=== PATIENT | female | born 1950 | race Caucasian/White ===

== ENCOUNTER 2023-05-31 01:38 | Emergency (ER) | payer MEDICARE, SELFPAY ==
--- NOTE | ~2023-05-31 | XR_ITS ---
EXAMINATION: XR CHEST CLINICAL INFORMATION: Dyspnea COMPARISON: None available. TECHNIQUE: Frontal view of the chest was obtained. FINDINGS: The lungs are clear with no focal consolidation. No evidence of pneumothorax, pulmonary edema, or pleural effusions. The cardiomediastinal silhouette is unremarkable. No acute osseous findings. XR/XR chest 1V IMPRESSION: No acute cardiopulmonary findings.
[2023-05-31 01:47] VITALS: BP 143/60; BP 150/80; PULSE 64; PULSE 78; RESP 20; TEMP 37.3; O2SAT 92; O2SAT 94; BMI 33.3
--- NOTE | 2023-05-31 02:16 | PC.NURSE ---
Pt A&Ox4, denies any pain, reports increase SOB x yesterday, Spo2 94% on RA, RR 16, lung sounds slightly wheezy, speaking in full sentences, Pt reports productive cough with clear to yellow sputum. Pt ambulated independently with steady gait to BR.
--- NOTE | 2023-05-31 02:22 | ECG_ITS ---
Test Reason : DYSPNEA Blood Pressure : / mmHG Vent. Rate : 076 BPM Atrial Rate : 076 BPM P-R Int : 170 ms QRS Dur : 082 ms QT Int : 406 ms P-R-T Axes : 061 009 049 degrees QTc Int : 456 ms Sinus rhythm with occasional Premature ventricular complexes Possible Left atrial enlargement Borderline ECG No previous ECGs available Referred By: Generic ED Physician Electronically Signed By:Sander Call
[2023-05-31 02:31] LABS: Delay - Chemistry DELAY
[2023-05-31 02:48] LABS: MANUAL DIFF FLAG NO
[2023-05-31 02:49] LABS: Basophils Absolute Auto 0.1 X10*3/uL (0.0-0.2); Basophils Percent Auto 0.7 % (0-2); Eosinophils Absolute Auto 0.5 X10*3/uL (0.0-0.4); Eosinophils Percent Auto 6.6 % (0-4); Hematocrit 41.4 % (37.0-47.0); Hemoglobin 13.6 g/dl (12.0-16.0); Imm Gran Abs Auto 0.02 X10*3/uL (0.00-0.03); Imm Gran Pct Auto 0.2 % (0.0-0.4); Lymphocytes Absolute Auto 1.2 X10*3/uL (1.2-4.9); Lymphocytes Percent Auto 14.3 % (20-40); Mean Corpuscular HGB Conc 32.9 g/dl (31.0-35.0); Mean Corpuscular Volume 94.3 fL (80.0-98.0); Mean Platelet Volume 9.5 fL (9.4-12.3); Monocytes Absolute Auto 0.4 X10*3/uL (0.1-1.2); Monocytes Percent Auto 5.4 % (2-11); Neutrophils Absolute Auto 5.8 x10*3/uL (2.0-8.3); Neutrophils Percent Auto 72.8 % (45-73); Platelet Count 173 X10*3/uL (160-400); Red Blood Count 4.39 X10*6/uL (4.20-5.50); Red Cell Distribution Width 12.8 % (11.0-16.0)
[2023-05-31 03:00] LABS: Anion Gap 15 (12-20); Blood Urea Nitrogen 16 mg/dL (9-16); Calcium 9.7 mg/dL (8.4-10.2); Carbon Dioxide 22 mmol/L (22-29); Chloride 108 mmol/L (96-108); Creatinine Clr Calc Pharmacy 86.2; Estimated Glomerular Filt Rate > 60; Glucose Random 140 mg/dL (60-115); Sodium 141 mmol/L (135-145)
[2023-05-31 04:18] LABS: Troponin-I High Sensitivity < 2.7 ng/L (<3.5-17.0)
--- NOTE | 2023-05-31 04:53 | ED.SOB ---
HPI - SOB/Dyspnea General Chief Complaint: Dyspnea Stated Complaint: asthma exacerbation/shortness of breath Time Seen by Provider: 05/31/23 04:51 Source: patient Mode of arrival: EMS Limitations: no limitations History of Present Illness HPI Narrative: INcreasing shortness of breath over the day and then gave herself nebs x 2 with no improvement. The amublance gave two treatments. patient did not receive steroids. This is the second time that she had shortness of breath in a few weeks. MD elicited complaint: shortness of breath Pertinent past history: asthma Onset (ago): hour(s) Timing: constant Severity: mild Known history of: asthma Related Data Previous Rx's Medication Instructions Recorded prednisone 20 mg tablet 60 mg PO DAILY #12 tabs 05/31/23 Allergies Allergy/AdvReac Type Severity Reaction Status Date / Time Iodinated Contrast Media Allergy Difficulty Verified 05/31/23 02:19 [Contrast Dye] Breathing codeine AdvReac Anxiety Verified 05/31/23 02:19 Review of Systems Review of Systems: Yes all other systems are reviewed and are negative Cardiovascular: Cardiovascular: Reports dyspnea Respiratory: Respiratory: Reports dyspnea Neurologic: Denies Sensory deficit (Neuro) [facility] Social History Social History Alcohol intake: current Alcohol intake frequency: holidays/special occasions only Smoked in Last 30 Days: No Use of substances other than those prescribed or required for medical reasons: No Advance Directives: No Advance Directives Information Provided: Yes Physical Exam Vital Signs: Vital Signs: Last Vital Signs Temp 98.3 F 05/31/23 06:00 Pulse 65 05/31/23 06:00 Resp 20 05/31/23 06:00 BP 134/47 L 05/31/23 06:00 Pulse Ox 95 05/31/23 06:00 O2 Del Method Room Air 05/31/23 06:00 BMI result Body Mass Index 33.3 Const: Other: slightly short of breath Nutritional Appearance: average body habitus Orientation/consciousness: oriented to person and patient oriented x3 Limitations: no limitations HEENT: Head: Yes normal to inspection Ears: external ears normal General nose exam: Normal external nose present Mouth: Normal oral and palatal mucosa present and oropharynx normal Throat: Yes posterior oropharynx normal Eyes: General: appearance normal, both eyes and all related structures Neck: Other: supple Neck: Yes normal visual inspection Chest: Chest palpation & inspection: normal inspection of the chest Resp: Other: diffuse wheezing bilaterally Cardio: Jugular venous distension: no JVD Rate: regular rate Rhythm: regular rhythm Heart sounds: S1 normal heart sound present and S2 normal heart sound present GI: Inspection: Yes normal to inspection Palpation (GI): Soft to palpation, nontender and No hepatosplenomegaly present Auscultation: normal bowel sounds : General: Yes no CVA tenderness Back/Spine/Pelvis: Back: no CVA tenderness Skin: General skin exam: no rashes or lesions noted Neuro: General: oriented to person and patient oriented x3 Cranial nerves: Yes CN's II-XII intact bilaterally Motor exam (neuro): 5/5 motor strength present throughout Sensory Exam: No Sensory deficit (Neuro) Extrem: General: Yes normal to inspection Psych: Appearance: grossly normal Course Reevaluation(s) Reevaluation #1: no more wheezing ambulating well will dc home on prednisone Time: 06:31 Medications Administered Discontinued Medications Generic Name Dose Route Start Last Admin Trade Name Freq PRN Reason Stop Dose Admin Albuterol Sulfate 2.5 mg/ 5 mg 05/31/23 05:00 05/31/23 05:18 Albuterol Sulfate 2.5 mg INHALE 05/31/23 05:01 5 mg ONCE ONE Administration Methylprednisolone Sodium Succinate 125 mg 05/31/23 05:01 05/31/23 05:25 Methylprednisolone Sod Succ 125 Mg/2 Ml Vial IVPUSH 05/31/23 05:02 125 mg ONCE ONE Administration Medical Decision Making Differential Diagnosis Differential Diagnoses: The differential diagnosis associated with the presentation includes (chronic obstructive pulmonary disease, sarcoidosis, pneumonia were all considered) Admission/Observation Consideration of admission/observation: Escalation of care including admission/observation considered (upon arrival this 72 yo female with shortness of breath and wheezing was considered for admission) Lab Data MDM Lab Attestation statement: I reviewed the patient's lab results. (normal WBC, chemistries normal) 05/31/23 02:43 05/31/23 02:43 Labs: Lab Results 05/31/23 05/31/23 05/31/23 Range/Units 02:30 02:43 02:43 WBC 8.0 (4.8-10.8) X10*3/uL RBC 4.39 (4.20-5.50) X10*6/uL Hgb 13.6 (12.0-16.0) g/dl Hct 41.4 (37.0-47.0) % MCV 94.3 (80.0-98.0) fL MCH 31.0 (27.0-33.0) pg MCHC 32.9 (31.0-35.0) g/dl RDW 12.8 (11.0-16.0) % Plt Count 173 (160-400) X10*3/uL MPV 9.5 (9.4-12.3) fL Immature Gran % (Auto) 0.2 (0.0-0.4) % Neut % (Auto) 72.8 (45-73) % Lymph % (Auto) 14.3 L (20-40) % [place] % (Auto) 5.4 (2-11) % Eos % (Auto) 6.6 H (0-4) % Baso % (Auto) 0.7 (0-2) % Lymph # (Auto) 1.2 (1.2-4.9) X10*3/uL [place] # (Auto) 0.4 (0.1-1.2) X10*3/uL Eos # (Auto) 0.5 H (0.0-0.4) X10*3/uL Baso # (Auto) 0.1 (0.0-0.2) X10*3/uL Abs Immat Gran (auto) 0.02 (0.00-0.03) X10*3/uL Absolute Neuts (auto) 5.8 (2.0-8.3) x10*3/uL Absolute Nucleated RBC 0.000 (0.0-0.012) X10*3/uL Nucleated RBC % (auto) 0.0 (0.0-0.2) /100WBC Sodium 141 (135-145) mmol/L Potassium 4.0 (3.3-5.1) mmol/L Chloride 108 (96-108) mmol/L Carbon Dioxide 22 (22-29) mmol/L Anion Gap 15 (12-20) BUN 16 (9-16) mg/dL Creatinine 0.69 (0.5-1.4) mg/dL Estim Creat Clear Calc 86.2 Estimated GFR > 60 Random Glucose 140 H (60-115) mg/dL Calcium 9.7 (8.4-10.2) mg/dL Troponin I High Sens (<3.5-17.0) ng/L Specimen Comment DELAY 05/31/23 Range/Units 02:43 WBC (4.8-10.8) X10*3/uL RBC (4.20-5.50) X10*6/uL Hgb (12.0-16.0) g/dl Hct (37.0-47.0) % MCV (80.0-98.0) fL MCH (27.0-33.0) pg MCHC (31.0-35.0) g/dl RDW (11.0-16.0) % Plt Count (160-400) X10*3/uL MPV (9.4-12.3) fL Immature Gran % (Auto) (0.0-0.4) % Neut % (Auto) (45-73) % Lymph % (Auto) (20-40) % [place] % (Auto) (2-11) % Eos % (Auto) (0-4) % Baso % (Auto) (0-2) % Lymph # (Auto) (1.2-4.9) X10*3/uL [place] # (Auto) (0.1-1.2) X10*3/uL Eos # (Auto) (0.0-0.4) X10*3/uL Baso # (Auto) (0.0-0.2) X10*3/uL Abs Immat Gran (auto) (0.00-0.03) X10*3/uL Absolute Neuts (auto) (2.0-8.3) x10*3/uL Absolute Nucleated RBC (0.0-0.012) X10*3/uL Nucleated RBC % (auto) (0.0-0.2) /100WBC Sodium (135-145) mmol/L Potassium (3.3-5.1) mmol/L Chloride (96-108) mmol/L Carbon Dioxide (22-29) mmol/L Anion Gap (12-20) BUN (9-16) mg/dL Creatinine (0.5-1.4) mg/dL Estim Creat Clear Calc Estimated GFR Random Glucose (60-115) mg/dL Calcium (8.4-10.2) mg/dL Troponin I High Sens < 2.7 (<3.5-17.0) ng/L Specimen Comment Independent Interpretation I performed an independent interpretation of an: EKG (sinus 80, pvcs, no st or twave changes) and Plain X-Ray (CXR: no infiltrate) Independent Historian Clinical information obtained from an independent historian. History obtained from or confirmed by: Other (daughter) External Record Review External record reviewed: Outpatient record Prescription Management I considered prescription management with: Antibiotic (antibiotics considered but no evidence of infection, no fever, normal WBC) Chronic Conditions Patient?s care impacted by: Other (COPD, sarcoidosis) Discharge Plan Discharge Clinical Impression: Acute exacerbation of chronic obstructive airways disease Patient Disposition: Home, Self-Care Instructions: COPD (Chronic Obstructive Pulmonary Disease) (ED) Prescriptions: New prednisone 20 mg tablet 60 mg PO DAILY Qty: 12 0RF Referrals: Physician,Unknown J [Primary Care Provider] - 5 days
[2023-05-31 05:18] VITALS: PULSE 64; RESP 18; O2SAT 94
[2023-05-31] MEDS: Albuterol Sulfate 2.5 MG, Albuterol Sulfate (0.083%) 2.5 MG 5 MG INHALE (05:18)
[2023-05-31] MEDS: methylPREDNISolone Sod Succ 125 MG/2 ML VIAL IVPUSH (05:25)
[2023-05-31 06:00] VITALS: BP 134/47; PULSE 65; RESP 20; TEMP 36.8; O2SAT 95
== END 2023-05-31 07:14 | disposition home or self-care (01) ==
PROVIDERS: Emergency Provider Emergency Medicine
DX: J44.1 Chronic obstructive pulmonary disease with (acute) exacerbation (principal); R06.02 Shortness of breath; R94.31 Abnormal electrocardiogram [ECG] [EKG]; J45.909 Unspecified asthma, uncomplicated; Z79.899 Other long term (current) drug therapy
CPT/HCPCS: 36415; 71045; 80048; 84484; 85025; 93005; 94640; 96374; 99284; 99285; J2930

== ENCOUNTER → 2023-05-31 02:22 | Outpatient (BNV) | payer MEDICARE, SELFPAY | PROVIDERS: Emergency Provider Emergency Medicine; Visit Provider Internal Medicine Cardiovascular Disease | DX: I49.3 Ventricular premature depolarization (principal) | CPT/HCPCS: 93010 ==

== ENCOUNTER 2023-08-09 09:42 | Outpatient (REF) | payer MEDICARE, SELFPAY ==
[2023-08-09 10:43] LABS: MANUAL DIFF FLAG NO
[2023-08-09 11:44] LABS: Basophils Absolute Auto 0.1 X10*3/uL (0.0-0.2); Eosinophils Absolute Auto 0.3 X10*3/uL (0.0-0.4); Eosinophils Percent Auto 5.5 % (0-4); Hematocrit 44.5 % (37.0-47.0); Hemoglobin 14.2 g/dl (12.0-16.0); Imm Gran Abs Auto 0.02 X10*3/uL (0.00-0.03); Imm Gran Pct Auto 0.4 % (0.0-0.4); Lymphocytes Absolute Auto 1.4 X10*3/uL (1.2-4.9); Lymphocytes Percent Auto 29.1 % (20-40); Mean Corpuscular HGB Conc 31.9 g/dl (31.0-35.0); Mean Corpuscular Hemoglobin 31.3 pg (27.0-33.0); Mean Corpuscular Volume 98.2 fL (80.0-98.0); Monocytes Absolute Auto 0.4 X10*3/uL (0.1-1.2); Monocytes Percent Auto 7.3 % (2-11); Neutrophils Absolute Auto 2.7 x10*3/uL (2.0-8.3); Neutrophils Percent Auto 56.7 % (45-73); Platelet Count 205 X10*3/uL (160-400); Red Blood Count 4.53 X10*6/uL (4.20-5.50); Red Cell Distribution Width 13.2 % (11.0-16.0); White Blood Count 4.8 X10*3/uL (4.8-10.8)
[2023-08-09 13:03] LABS: Alanine Aminotransferase 13 U/L (0-31); Albumin Level 4.3 g/dL (3.5-5.0); Alkaline Phosphatase 67 U/L (39-117); Anion Gap 16 (12-20); Aspartate Amino Transferase 15 U/L (5-31); Bilirubin Direct 0.2 mg/dL (0.0-0.5); Bilirubin Total 0.7 mg/dL (0.0-1.0); Blood Urea Nitrogen 12 mg/dL (9-16); Calcium 9.5 mg/dL (8.4-10.2); Carbon Dioxide 26 mmol/L (22-29); Chloride 104 mmol/L (96-108); Estimated Glomerular Filt Rate > 60; Glucose Random 97 mg/dL (60-115); Potassium 3.9 mmol/L (3.3-5.1); Sodium 142 mmol/L (135-145)
[2023-08-16 13:28] LABS: Angiotensin Converting Enzyme 28 U/L (9-67)
== END 2023-08-09 09:43 | disposition home or self-care (01) ==
LOC: HO.LAB 09:42
PROVIDERS: PCP Nurse Practitioner Primary Care; Visit Provider Internal Medicine Pulmonary Disease
DX: D86.9 Sarcoidosis, unspecified (principal); J45.909 Unspecified asthma, uncomplicated
CPT/HCPCS: 36415; 80048; 80076; 82164; 85025

== ENCOUNTER 2023-08-09 09:42 | Outpatient (AMB) | payer MEDICARE, SELFPAY ==
--- NOTE | 2023-08-09 09:50 | MHC.OFFVIS ---
Intake Vital Signs 08/09/23 09:56 Height 5 ft 6 in BP 110/62 Blood Pressure Location Rt brachial Position Sitting Pulse 59 Pulse Source Doppler Pulse Oximetry (%) 95 Oxygen Delivery Method Room Air Intake Visit Reasons: Asthma Allergies Iodinated Contrast Media [Contrast Dye] Allergy (Verified 05/31/23 02:19) Difficulty Breathing codeine Adverse Reaction (Verified 05/31/23 02:19) Anxiety HPI Asthma HPI Details 72-year-old lady with underlying diagnosis of sarcoidosis in 1996 with bronchoscopic biopsy performed in [facility]) treated with inhaled corticosteroids still 2001, after to sound 2 on now therapy, referred for evaluation of her pulmonary concerns after patient had several asthma symptoms related ER visit over the summer of 2022 that she attributes to high humidity. Currently she has essentially asymptomatic on Symbicort 160 and albuterol MDI. Though, she does complain of significant raspiness of her with while using Symbicort. Patient does not know her family medical history as she was adopted. 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 Patient has recent pulmonary function test performed at [facility], not available for current visit. [facility] Social History Alcohol intake: current Alcohol intake frequency: holidays/special occasions only Review of Systems Const Denies daytime sleepiness, Denies excessive sweating, Denies fatigue, Denies fever(s), Denies lethargy, Denies malaise, Denies night sweats, Denies snoring and Denies weight loss Eyes Denies blurry vision and Denies itchy eyes ENT Denies nasal congestion, Denies post nasal drip, Denies sinus pain, Denies sinus pressure and Denies other ( Thrush) Card Denies chest pain, Denies pedal edema, Denies dyspnea, Denies orthopnea and Denies paroxysmal nocturnal dyspnea Resp Denies cough, Denies hemoptysis, Denies excessive phlegm production, Denies dyspnea, Denies snoring and Denies wheezing GI Denies abdominal pain and Denies heartburn Musc Denies myalgias, Denies arthralgias and Denies joint swelling Skin/Breast Denies rash Neuro Denies memory loss and Denies seizure-like activity Psych Denies abnormal sleep pattern, Denies anxiety and Denies memory loss Endo Denies excessive sweating, Denies fatigue and Denies heat intolerance Homero/Lymph Denies easy bruising Aller/Immun Denies itchy eyes, Denies seasonal rhinorrhea and Denies wheezing Physical Exam Vital Signs: Last Vital Signs Pulse 59 08/09/23 09:56 BP 110/62 08/09/23 09:56 Pulse Ox 95 08/09/23 09:56 Oxygen Delivery Method Room Air 08/09/23 09:56 Const General: no acute distress and alert Nutritional Appearance: not obese Orientation/consciousness: Other orientation findings ( oriented) HEENT Head: Yes atraumatic Eyes General: appearance normal, both eyes and all related structures Sclerae: sclerae normal EOM: EOMs intact bilaterally Neck Neck: Yes supple Lymphatic: no lymphadenopathy noted Resp Effort & Inspection: normal respiratory effort and no use of accessory muscles Auscultation: clear to auscultation bilaterally Cardio Rate: regular rate Rhythm: regular rhythm Heart sounds: no gallops, no murmurs and no rubs Skin General skin exam: other ( warm) Extrem General: No clubbing, No cyanosis and No edema Assessment & Plan Assessment & Plan (1) Sarcoidosis: Code(s): D86.9 - Sarcoidosis, unspecified Plan: On biopsy from bronchoscopic specimen in 1996, recently in remission, until summer. Will obtain CT chest and laboratory studies for further evaluation. Now controlled on Symbicort. (2) Asthma: Code(s): J45.909 - Unspecified asthma, uncomplicated Plan: Symptoms controlled Symbicort, has significant raspiness of her voice, will switch to Breo. Will request PFT results from [facility]. Orders: Orders CT chest wo IV con Today D86.9 - Sarcoidosis, unspecified Liver Panel Today D86.9 - Sarcoidosis, unspecified Complete Blood Count Auto Diff Today D86.9 - Sarcoidosis, unspecified Basic Metabolic Panel Today D86.9 - Sarcoidosis, unspecified Angiotensin Converting Enzyme Today D86.9 - Sarcoidosis, unspecified Medications: New Breo Ellipta 100-25 mcg/dose (fluticasone furoate-vilanterol) 1 inh inhalation DAILY 30 days 60 ea 6RF NS D86.9 - Sarcoidosis, unspecified Coding Level of Care Code New Pt Level 4 (65833) Diagnoses Sarcoidosis D86.9 Asthma J45.909
[2023-08-09 09:56] VITALS: BP 110/62; PULSE 59; O2SAT 95
== END 2023-08-09 10:33 | disposition home or self-care (01) ==
PROVIDERS: Visit Provider Internal Medicine Pulmonary Disease
DX: D86.9 Sarcoidosis, unspecified (principal); J45.909 Unspecified asthma, uncomplicated
CPT/HCPCS: 99204

== ENCOUNTER 2023-08-31 14:17 | Outpatient (REF) | payer MEDICARE, SELFPAY ==
--- NOTE | ~2023-08-31 | CT_ITS ---
EXAMINATION: CT CHEST WITHOUT CONTRAST CLINICAL INFORMATION: Sarcoidosis. COMPARISON: Chest x-ray 05/31/2023. TECHNIQUE: Multidetector volumetric CT imaging of the chest was done. Axial MIP volume rendering provided. Sagittal and coronal reformatted images were obtained. This CT examination was performed using dose optimization techniques as appropriate, variously including the following: *Automated exposure control *Adjustment of mA and/or kV according to patient size (this includes techniques or standardized protocols for targeted exams where dose is matched to indication/reason for exam; i.e. extremities or head) *Use of iterative reconstruction technique DLP: 179 mGy-cm FINDINGS: LUNGS: Minor subpleural reticulation in the lateral aspect of the right lower lobe. Scattered pulmonary micronodules for which no follow-up is recommended as per Fleischner Society guidelines. No dominant nodule or nodule with suspicious morphology. No consolidation MEDIASTINUM: No adenopathy. No pericardial effusion. Pectus excavatum distorts the anterior mediastinum. No aortic aneurysm. CORONARY ARTERY CALCIFICATION: None visualized on this study. PLEURA: There is no pleural effusion. No pleural mass or thickening. AXILLA: No adenopathy. UPPER ABDOMEN: No adrenal mass. The spleen is not enlarged. No upper abdominal adenopathy. OSSEOUS STRUCTURES: Pectus excavatum. Mild endplate degenerative changes in the thoracic spine. CT/CT chest wo IV con IMPRESSION: Mild asymmetric subpleural reticulation in the lateral aspect of the right lower lobe. This is nonspecific but not strongly suspicious of interstitial lung disease related to sarcoid. No adenopathy. Normal size spleen. Fleischner guidelines were followed.
== END 2023-08-31 14:18 | disposition home or self-care (01) ==
LOC: HO.CT 14:17
PROVIDERS: PCP Nurse Practitioner Primary Care; Visit Provider Internal Medicine Pulmonary Disease
DX: D86.9 Sarcoidosis, unspecified (principal)
CPT/HCPCS: 71250

== ENCOUNTER 2023-09-06 10:07 | Outpatient (AMB) | payer MEDICARE, SELFPAY ==
--- NOTE | 2023-09-06 10:09 | A.OFFVIS_ITS ---
Intake Vital Signs 09/06/23 10:15 Height 5 ft 6 in BP 109/62 Blood Pressure Location Rt brachial Position Sitting Pulse 65 Pulse Source Doppler Pulse Oximetry (%) 97 Oxygen Delivery Method Room Air Intake Visit Reasons: Asthma Allergies Iodinated Contrast Media [Contrast Dye] Allergy (Verified 09/06/23 10:19) Difficulty Breathing codeine Adverse Reaction (Verified 09/06/23 10:19) Anxiety HPI Asthma HPI Details 72-year-old lady with underlying diagnos is of sarcoidosis in 1996 with bronchoscopic biopsy performed in [facility]) treated with inhaled corticosteroids still 2001, after to sound 2 on now therapy, referred for evaluation of her pulmonary concerns after patient had several asthma symptoms related ER visit over the summer of 2022 that she attributes to high humidity. Currently she has essentially asymptomatic on Symbicort 160 and albuterol MDI. Though, she does complain of significant raspiness of her with while using Symbicort. Patient does not know her family medical history as she was adopted. 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 After the last office visit pulmonary function test from [facility] with reviewed. Patient does have underlying mild COPD with bronchodilator response. She completed her CT chest with radiologist reading still pending, but on my review no acute pulmonary process noted. She has tried switching from Symbicort to Breo with worsening control of her symptoms, but improvement in side effects. Her renal function, transaminases, and RAMBO level are normal. Her CBC shows elevated eosinophils. [facility] Social History Alcohol intake: current Alcohol intake frequency: holidays/special occasions only Review of Systems Const Denies daytime sleepiness, Denies excessive sweating, Denies fatigue, Denies fever(s), Denies lethargy, Denies malaise, Denies night sweats, Denies snoring and Denies weight loss Eyes Denies blurry vision and Denies itchy eyes ENT Denies nasal congestion, Denies post nasal drip, Denies sinus pain, Denies sinus pressure and Denies other ( Thrush) Card Denies chest pain, Denies pedal edema, Denies dyspnea, Denies orthopnea and De nies paroxysmal nocturnal dyspnea Resp Denies cough, Denies hemoptysis, Denies excessive phlegm production, Denies dyspnea, Denies snoring and Denies wheezing GI Denies abdominal pain and Denies heartburn Musc Denies myalgias, Denies arthralgias and Denies joint swelling Skin/Breast Denies rash Neuro Denies memory loss and Denies seizure-like activity Psych Denies abnormal sleep pattern, Denies anxiety and Denies memory loss Endo Denies excessive sweating, Denies fatigue and Denies heat intolerance Homero/Lymph Denies easy bruising Aller/Immun Denies itchy eyes, Denies seasonal rhinorrhea and Denies wheezing Physical Exam Vital Signs: Last Vital Signs Pulse 65 09/06/23 10:15 BP 109/62 09/06/23 10:15 Pulse Ox 97 09/06/23 10:15 Oxygen Delivery Method Room Air 09/06/23 10:15 Const General: no acute distress and alert Nutritional Appearance: not obese Orientation/consciousness: Other orientation findings ( oriented) HEENT Head: Yes atraumatic Eyes General: appearance normal, both eyes and all related structures Sclerae: sclerae normal EOM: EOMs intact bilaterally Neck Neck: Yes supple Lymphatic: no lymphadenopathy noted Resp Effort & Inspection: normal respiratory effort and no use of accessory muscles Auscultation: clear to auscultation bilaterally Cardio Rate: regular rate Rhythm: regular rhythm Heart sounds: no gallops, no murmurs and no rubs Skin General skin exam: other ( warm) Extrem General: No clubbing, No cyanosis and No edema Assessment & Plan Assessment & Plan (1) Sarcoidosis: Code(s): D86.9 - Sarcoidosis, unspecified (2) Asthma: Code(s): J45.909 - Unspecified asthma, uncomplicated Plan Worsening control on Breo, patient wants to try Symbicort back. May consider switching to Trelegy or BrezTri. Will obtain RAST for evaluation of allergic component. Orders: Orders Rast Allergen Today J45.909 - Unspecified asthma, uncomplicated Coding Level of Care Code Est Pt Level 4 (10944) Diagnoses Sarcoidosis D86.9 Asthma J45.909
[2023-09-06 10:15] VITALS: BP 109/62; PULSE 65; O2SAT 97
== END 2023-09-06 10:46 | disposition home or self-care (01) ==
PROVIDERS: PCP Nurse Practitioner Primary Care; Visit Provider Internal Medicine Pulmonary Disease
DX: D86.9 Sarcoidosis, unspecified (principal); J45.909 Unspecified asthma, uncomplicated
CPT/HCPCS: 99214

== ENCOUNTER 2023-09-06 10:07 | Outpatient (REF) | payer MEDICARE, SELFPAY | END 2023-09-06 10:08 | disposition home or self-care (01) | LOC: HO.LAB 10:07 | PROVIDERS: PCP Nurse Practitioner Primary Care; Visit Provider Internal Medicine Pulmonary Disease | DX: J45.909 Unspecified asthma, uncomplicated (principal); D86.9 Sarcoidosis, unspecified | CPT/HCPCS: 36415; 82785; 86003; 99212 ==

== ENCOUNTER 2023-10-25 10:39 | Outpatient (AMB) | payer MEDICARE, SELFPAY ==
[2023-10-25 10:40] VITALS: BP 110/57; PULSE 67; O2SAT 98
--- NOTE | 2023-10-25 10:40 | MHC.OFFVIS ---
Intake Vital Signs 10/25/23 10:40 Height 5 ft 6 in BP 110/57 L Blood Pressure Location Rt brachial Position Sitting Pulse 67 Pulse Source Doppler Pulse Oximetry (%) 98 Oxygen Delivery Method Room Air Intake Visit Reasons: Asthma Allergies Iodinated Contrast Media [Contrast Dye] Allergy (Verified 10/25/23 10:42) Difficulty Breathing codeine Adverse Reaction (Verified 10/25/23 10:42) Anxiety HPI Asthma HPI Details 73-year-old lady with underlying diagnosis of sarcoidosis with symptoms reasonably well controlled on Symbicort 160 and albuterol MDI. After the last office visit patient has completed her RAST that was essentially normal. His CT chest shows some signs of sarcoidosis. She does complain of cough productive of thick sputum. [facility] Social History Alcohol intake: current Alcohol intake frequency: holidays/special occasions only Review of Systems Const Denies daytime sleepiness, Denies excessive sweating, Denies fatigue, Denies fever(s), Denies lethargy, Denies malaise, Denies night sweats, Denies snoring and Denies weight loss Eyes Denies blurry vision and Denies itchy eyes ENT Denies nasal congestion, Denies post nasal drip, Denies sinus pain, Denies sinus pressure and Denies other ( Thrush) Card Denies chest pain, Denies pedal edema, Denies dyspnea, Denies orthopnea and Denies paroxysmal nocturnal dyspnea Resp Reports cough, Denies hemoptysis, Reports excessive phlegm production, Denies dyspnea, Denies snoring and Denies wheezing GI Denies abdominal pain and Denies heartburn Musc Denies myalgias, Denies arthralgias and Denies joint swelling Skin/Breast Denies rash Neuro Denies memory loss and Denies seizure-like activity Psych Denies abnormal sleep pattern, Denies anxiety and Denies memory loss Endo Denies excessive sweating, Denies fatigue and Denies heat intolerance Homero/Lymph Denies easy bruising Aller/Immun Denies itchy eyes, Denies seasonal rhinorrhea and Denies wheezing Physical Exam Vital Signs: Last Vital Signs Pulse 67 10/25/23 10:40 BP 110/57 L 10/25/23 10:40 Pulse Ox 98 10/25/23 10:40 Oxygen Delivery Method Room Air 10/25/23 10:40 Const General: no acute distress and alert Nutritional Appearance: not obese Orientation/consciousness: Other orientation findings ( oriented) HEENT Head: Yes atraumatic Eyes General: appearance normal, both eyes and all related structures Sclerae: sclerae normal EOM: EOMs intact bilaterally Neck Neck: Yes supple Lymphatic: no lymphadenopathy noted Resp Effort & Inspection: normal respiratory effort and no use of accessory muscles Auscultation: clear to auscultation bilaterally Cardio Rate: regular rate Rhythm: regular rhythm Heart sounds: no gallops, no murmurs and no rubs Skin General skin exam: other ( warm) Extrem General: No clubbing, No cyanosis and No edema Assessment & Plan Assessment & Plan (1) Sarcoidosis: Code(s): D86.9 - Sarcoidosis, unspecified (2) Asthma: Code(s): J45.909 - Unspecified asthma, uncomplicated Plan Results of CT chest reviewed, peripheral reticulation compatible with sarcoidosis, no fibrosis or significant lymphadenopathy. Symptoms reasonably well controlled on Symbicort and albuterol MDI. Continue current regimen. Now with bronchitic exacerbation, will treat with a course of azithromycin. Results of RAST reviewed, underlying eosinophilia. will monitor clinically at this time, if symptoms start to worsen, will consider Fasenra. Medications: New azithromycin For 250 mg dose pack: take 500 mg today (day 1), then 250 mg for 4 days (days 2-5) PO 6 tabs 0RF Symbicort 160-4.5 mcg/actuation (budesonide-formoterol) 2 puffs inhalation BID 90 days 3 ea 4RF NS Discontinued Breo Ellipta 100-25 mcg/dose (fluticasone furoate-vilanterol) Discontinued Reason: Doctor's Order 1 inh inhalation DAILY 30 days 60 ea 6RF NS D86.9 - Sarcoidosis, unspecified Coding Level of Care Code Est Pt Level 4 (81517) Diagnoses Sarcoidosis D86.9 Asthma J45.909
== END 2023-10-25 11:12 | disposition home or self-care (01) ==
PROVIDERS: PCP Nurse Practitioner Primary Care; Visit Provider Internal Medicine Pulmonary Disease
DX: D86.9 Sarcoidosis, unspecified (principal); J45.909 Unspecified asthma, uncomplicated
CPT/HCPCS: 99214

== ENCOUNTER → 2023-10-25 10:39 | Outpatient (BNVA) | payer MEDICARE, SELFPAY | PROVIDERS: PCP Nurse Practitioner Primary Care; Visit Provider Internal Medicine Pulmonary Disease | DX: D86.9 Sarcoidosis, unspecified (principal); J45.909 Unspecified asthma, uncomplicated | CPT/HCPCS: 99212 ==

== ENCOUNTER 2023-11-06 15:57 | Emergency (ER) | payer MEDICARE, SELFPAY ==
--- NOTE | ~2023-11-06 | XR_ITS ---
EXAMINATION: XR RIBS, LEFT CLINICAL INFORMATION: Fall, pain. COMPARISON: None available. TECHNIQUE: 3 views of the left ribs were obtained. Chest one view. FINDINGS: Lungs are clear. No consolidation, pneumothorax, or pleural effusion. The cardiomediastinal silhouette and pulmonary vasculature are normal. Osseous structures are unremarkable. Multiple views of left ribs reveal no visible fracture or bony abnormality. No fractures are identified. XR/XR ribs LT min 3V w CXR1V IMPRESSION: Unremarkable chest and left Ribs series exam.
--- NOTE | 2023-11-06 16:08 | ED.FALL ---
HPI - Fall General Chief Complaint: Fall Stated Complaint: fell11/06 left side rib pain Time Seen by Provider: 11/06/23 17:56 Source: patient Mode of arrival: ambulatory Limitations: no limitations History of Present Illness HPI Narrative: Patient is a 73-year-old female presents emergency department for evaluation of traumatic left rib pain. Reports approximately 1.5 hours prior to arrival she was walking and she sustained a mechanical fall who believes she may have tripped over a stick, resulting in a fall landing lateral chest wall. Pain is made worse inspiration. Denies any head strike or loss of consciousness. Reports a prior rib fx from a fall on this side a few years back. Related Data Home Medications Medication Instructions Recorded Confirmed albuterol sulfate 2.5 mg/3 mL mg inhalation 08/09/23 (0.083 %) solution for nebulization albuterol sulfate 90 mcg/actuation inhalation 08/09/23 aerosol inhaler apixaban 5 mg tablet (Eliquis) 5 mg PO BID 08/09/23 flecainide 100 mg tablet 50 mg PO BID 08/09/23 propranolol 20 mg tablet 20 mg PO BID 08/09/23 Previous Rx's Medication Instructions Recorded Symbicort 160 mcg-4.5 2 puff inhalation BID 90 days #3 ea 10/25/23 mcg/actuation HFA aerosol inhaler (budesonide-formoterol) azithromycin 250 mg tablet See Rx Instructions PO .COMPLEX #6 10/25/23 tabs Allergies Allergy/AdvReac Type Severity Reaction Status Date / Time Iodinated Contrast Media Allergy Difficulty Verified 10/25/23 10:42 [Contrast Dye] Breathing codeine AdvReac Anxiety Verified 10/25/23 10:42 Review of Systems Review of Systems: Yes all other systems are reviewed and are negative [facility] Past Medical History Attestation statement: The following information was validated with the patient. Source: old records reviewed Social History Social History Alcohol intake: current Alcohol intake frequency: holidays/special occasions only Advance Directives: Yes Advance Directives Information Provided: No Advance Directives on File: No Physical Exam Vital Signs: Vital Signs: Last Vital Signs Temp 97.5 F 11/06/23 16:11 Pulse 70 11/06/23 16:11 Resp 18 11/06/23 16:11 BP 133/63 11/06/23 16:11 Pulse Ox 96 11/06/23 16:11 O2 Del Method Room Air 11/06/23 16:11 BMI result Body Mass Index 32.3 Appearance: Alert.?Oriented to person, place and time. No acute distress.?Normal affect. Head: Normocephalic, atraumatic Eyes: Pupils equal, round and reactive to light.? EOMI. No nystagmus. ENT: Pharynx normal.??Dentition normal. Neck: Normal inspection.? Neck supple.??No midline cervical spine tenderness, step-offs, deformities. CVS: Heart sounds normal. Normal heart rate and rhythm.? Pulses normal.?? Respiratory: No respiratory distress.? Lung sounds clear to auscultation bilaterally. Left lateral chest wall tenderness palpation. No crepitus. No palpable deformity. Abdomen: Soft and non-tender. Normoactive bowel sounds. ? Skin: Skin warm and dry.? Normal skin color.? Extremities: No lower extremity edema.? No calf ttp? Neuro: Moves all extremities spontaneously. Sensation intact bilaterally. No focal neuro deficits. Ambulates with normal steady gait. Medical Decision Making Medical Decision Making MDM Narrative: Patient is a 73-year-old female who presents emergency department for evaluation after a mechanical fall. Presents emergency department for evaluation of pain to the left lateral chest wall which is where she landed, pain is reproducible to palp and deep inspiration. XR obtained reveals no evidence of fracture or dislocation. I suspect pain to be most consistent with contusion of the ribs, pleuritic in nature after injury, atypical for ACS/PE. She is anticoagulated on Eliquis, she denies any head strike or loss consciousness, we discussed given mechanism of injury possibility for ICH, SDH. She would like to avoid any CT scan at this time possible. She is denying any headache dizziness, lightheadedness. She has no focal neurological deficits upon examination. Discussed strict return precautions. Reviewed use of incentive spirometer. Stable for discharge. Differential Diagnosis Differential Diagnoses: The differential diagnosis associated with the presentation includes (As noted above) Admission/Observation Consideration of admission/observation: Escalation of care including admission/observation considered (As noted above) Independent Interpretation I performed an independent interpretation of an: Plain X-Ray Radiology Impression Discussion of test interpretation with radiology: I have reviewed the radiologist's reading. Radiologist Impression: XR/XR ribs LT min 3V w CXR1V IMPRESSION: Unremarkable chest and left Ribs series exam. Independent Historian Clinical information obtained from an independent historian. History obtained from or confirmed by: Spouse External Record Review External record reviewed: Outpatient record Tests considered The following testing was considered but not selected: CT; see narrative above Prescription Management I considered prescription management with: Pain Medication Discharge Plan Discharge Clinical Impression: Contusion of rib on left side Patient Disposition: Home, Self-Care Instructions: How to Use an Incentive Spirometer (ED), Rib Contusion (ED) Additional Instructions: You can take Tylenol 500 mg, 2 tablets (1,000mg) every 4-6 hours as needed for pain, but not to exceed 3 doses daily (3,000mg).? Contact your primary care provider to arrange for a follow-up visit. Return back to emergency department any new or worsening symptoms or concerns. Prescriptions: No Action Eliquis 5 mg tablet 5 mg PO BID propranolol 20 mg tablet 20 mg PO BID albuterol sulfate 90 mcg/actuation HFA aerosol inhaler inhalation albuterol sulfate 2.5 mg /3 mL (0.083 %) solution for nebulization inhalation flecainide 100 mg tablet 50 mg PO BID azithromycin 250 mg tablet See Rx Instructions PO .COMPLEX Qty: 6 0RF Rx Instructions: For 250 mg dose pack: take 500 mg today (day 1), then 250 mg for 4 days (days 2-5) PO budesonide-formoterol [Symbicort] 160-4.5 mcg/actuation HFA aerosol inhaler 2 puff inhalation BID 90 Days Qty: 3 4RF Referrals: Maggie Taylor CNP [Nurse Practitioner] - Interventions: ED Discharge Assessment Last Done: 11/06/23 18:20 Discharge Date/Time: 11/06/23 18:20
[2023-11-06 16:11] VITALS: BP 133/63; PULSE 70; RESP 18; TEMP 36.4; O2SAT 96; BMI 32.3
== END 2023-11-06 18:20 | disposition home or self-care (01) ==
PROVIDERS: Emergency Provider Emergency Medicine; PCP Registered Nurse
DX: S20.212A Contusion of left front wall of thorax, initial encounter (principal); W01.0XXA Fall on same level from slipping, tripping and stumbling without subsequent striking against object, initial encounter; Y93.9 Activity, unspecified; Y92.9 Unspecified place or not applicable; Y99.9 Unspecified external cause status
CPT/HCPCS: 71101; 99282; 99283

== ENCOUNTER 2024-03-27 11:16 | Outpatient (AMB) | payer MEDICARE, SELFPAY ==
--- NOTE | 2024-03-27 11:18 | A.OFFVIS_ITS ---
Vital Signs 03/27/24 11:19 Height 5 ft 6 in Weight 200 lb 9.93 oz BMI 32.4 BP 112/62 Blood Pressure Location Rt brachial Position Sitting Pulse 86 Pulse Source Doppler Pulse Oximetry (%) 92 Oxygen Delivery Method Room Air Intake Visit Reasons: Asthma Allergies Iodinated Contrast Media [Contrast Dye] Allergy (Verified 03/27/24 11:22) Difficulty Breathing codeine Adverse Reaction (Verified 03/27/24 11:22) Anxiety HPI HPI Asthma: Details: 73-year-old lady with underlying diagnosis of sarcoidosis with symptoms reasonably well controlled on Symbicort (she was unable to afford 160/4.5 [place] so she has been prescribed 200/6 in [place] by her PCP) and albuterol MDI. Her symptoms have been well controlled and she denies any recent exacerbations. [facility] Social History Alcohol intake: current Alcohol intake frequency: holidays/special occasions only Review of Systems Card Denies dyspnea on exertion Resp Denies cough, Denies excessive phlegm production, Denies dyspnea on exertion and Denies wheezing Aller/Immun Denies wheezing Physical Exam Vital Signs: Last Vital Signs Pulse 86 03/27/24 11:19 BP 112/62 03/27/24 11:19 Pulse Ox 92 03/27/24 11:19 Oxygen Delivery Method Room Air 03/27/24 11:19 BMI result Body Mass Index 32.4 Assessment & Plan Assessment & Plan (1) Asthma: Code(s): J45.909 - Unspecified asthma, uncomplicated Category: Medical (2) Sarcoidosis: Code(s): D86.9 - Sarcoidosis, unspecified Category: Medical Plan Symptoms well controlled on the current regimen of Symbicort 200/6 and albuterol MDI. Continue the current regimen. Coding Level of Care Code Est Pt Level 4 (78514) Diagnoses Asthma J45.909 Sarcoidosis D86.9
[2024-03-27 11:19] VITALS: BP 112/62; PULSE 86; O2SAT 92; BMI 32.4
== END 2024-03-27 11:38 | disposition home or self-care (01) ==
PROVIDERS: PCP Nurse Practitioner Primary Care; Visit Provider Internal Medicine Pulmonary Disease
DX: J45.909 Unspecified asthma, uncomplicated (principal); D86.9 Sarcoidosis, unspecified
CPT/HCPCS: 99214

== ENCOUNTER → 2024-03-27 11:16 | Outpatient (BNVA) | payer MEDICARE, SELFPAY | PROVIDERS: PCP Nurse Practitioner Primary Care; Visit Provider Internal Medicine Pulmonary Disease | DX: D86.9 Sarcoidosis, unspecified (principal); J45.909 Unspecified asthma, uncomplicated; Z79.899 Other long term (current) drug therapy | CPT/HCPCS: 99212 ==

== ENCOUNTER 2025-10-17 14:08 | Outpatient (RCR) | payer MEDICARE, SELFPAY | END 2025-11-12 14:28 | disposition home or self-care (01) | LOC: HO.PT 14:08 | PROVIDERS: PCP Physician Assistant; Visit Provider Internal Medicine Gastroenterology | DX: M99.05 Segmental and somatic dysfunction of pelvic region (principal) | CPT/HCPCS: 97110; 97112; 97140; 97161 ==